=== PATIENT | male | born 1995 | race Caucasian/White ===

== ENCOUNTER → 2023-11-12 07:14 | Outpatient (REF) | payer BC, SELFPAY ==
[2023-11-12 08:02] LABS: % Basophils 1.4 % (0-2); % Immature Granulocytes 0.1 % (0-0.5); % Lymphocytes 19.3 % (20.5-51.1); % Monocytes 11.2 % (1.7-9.3); Absolute Basophils 0.1 10^3/uL (0-0.2); Absolute Eosinophils 0.3 10^3/uL (0-0.7); Absolute Lymphocytes 1.3 10^3/uL (1.2-3.4); Absolute Monocytes 0.8 10^3/uL (0.1-0.6); Absolute Neutrophils 4.5 10^3/uL (1.4-6.5); Hematocrit 44.8 % (39.0-52.0); Hemoglobin 15.1 g/dL (13.0-18.0); Mean Corp Hgb Conc. 33.7 g/dL (33.0-37.0); Mean Corpuscular Hgb 27.4 pg (27.0-31.0); Mean Corpuscular Volume 81.3 fL (80.0-94.0); Mean Platelet Volume 10.4 fL (7.4-10.4); Nucleated Red Blood Cells % 0 % (-); Platelet Count 369 10^3/uL (130-400); Red Blood Cell Count 5.51 10^6/uL (4.70-6.10); Red Cell Dist. Width 12.9 % (11.5-14.5)
[2023-11-12 08:37] LABS: Glycohemoglobin (HgbA1c) 10.5 % (4.0-5.6)
[2023-11-12 08:40] LABS: ALT (SGPT) 38 U/L (0-50); AST (SGOT) 30 U/L (17-59); Albumin 4.4 g/dl (3.5-5.0); Alkaline Phosphatase 112 U/L (38-126); Blood Urea Nitrogen 10 mg/dl (9-20); Carbon Dioxide 31 mmol/L (22-30); Chloride 98 mmol/L (98-107); Glucose 132 mg/dl (70-99); HDL Cholesterol 60 mg/dl; LDL Cholesterol, Calculated 110 mg/dl; Potassium 4.2 mmol/L (3.5-5.1); Sodium 139 mmol/L (135-145); Total Bilirubin 0.6 mg/dl (0.2-1.3); Total Cholesterol 188 mg/dl (50-199); Triglyceride 92 mg/dl (10-149); Very Low Density Lipoprotein 18 mg/dl (0-30); eGFR > 60.00
[2023-11-12 08:56] LABS: Vitamin D, 25-OH*** 55.8 ng/mL (30-80)
== END ==
LOC: REG 07:14
PROVIDERS: ATTENDING PHYSICIAN Internal Medicine
DX: E10.9 Type 1 diabetes mellitus without complications (principal); Z00.00 Encounter for general adult medical examination without abnormal findings; E55.9 Vitamin D deficiency, unspecified
CPT/HCPCS: 36415; 80053; 80061; 82306; 83036; 84443; 85025

== ENCOUNTER 2023-11-29 07:38 | Outpatient (RCR) | payer BC, SELFPAY ==
[2023-11-29] VITALS (11 sets, daily range): BP systolic 125–157; BP diastolic 87–98
[2023-11-29 08:33] LABS: % Basophils 1.1 % (0-2); % Eosinophils 3.2 % (0-6); % Immature Granulocytes 0.2 % (0-0.5); % Lymphocytes 18.2 % (20.5-51.1); % Monocytes 10.1 % (1.7-9.3); % Neutrophils 67.2 % (42.2-75.2); Absolute Basophils 0.1 10^3/uL (0-0.2); Absolute Eosinophils 0.2 10^3/uL (0-0.7); Absolute Lymphocytes 1.2 10^3/uL (1.2-3.4); Absolute Monocytes 0.7 10^3/uL (0.1-0.6); Absolute Neutrophils 4.5 10^3/uL (1.4-6.5); Hematocrit 39.5 % (39.0-52.0); Mean Corp Hgb Conc. 35.4 g/dL (33.0-37.0); Mean Corpuscular Hgb 27.8 pg (27.0-31.0); Mean Corpuscular Volume 78.4 fL (80.0-94.0); Mean Platelet Volume 10.1 fL (7.4-10.4); Nucleated Red Blood Cells % 0 % (-); Platelet Count 363 10^3/uL (130-400); Red Blood Cell Count 5.04 10^6/uL (4.70-6.10); Red Cell Dist. Width 13.2 % (11.5-14.5); White Blood Cell Count 6.6 10^3/uL (4.8-10.8)
[2023-11-29] MEDS: TYLENOL 650 MG PO (08:38)
[2023-11-29] MEDS: SOLU-MEDROL PF 51.6000000000000014 MG IV (08:38)
[2023-11-29] MEDS: NSS 500 IV (08:39)
[2023-11-29] MEDS: ATIVAN 1 ML IV (09:03)
[2023-11-29] MEDS: ATIVAN 1 MG IV (09:03)
[2023-11-29] MEDS: OCREVUS 520 MG IV (09:04)
== END 2023-12-02 08:19 | disposition home or self-care (01) ==
LOC: OID 07:38
PROVIDERS: ATTENDING PHYSICIAN Psychiatry & Neurology Neurology; FAMILY PHYSICIAN Internal Medicine
DX: G35 Multiple sclerosis (principal)
CPT/HCPCS: 36415; 85025; 96361; 96365; 96366; 96367; 96375; J2350

== ENCOUNTER → 2024-01-11 08:28 | Outpatient (REF) | payer BC, SELFPAY ==
[2024-01-11 10:15] LABS: Ferritin 48.5 ng/ml (17.9-464.0)
== END ==
LOC: REG 08:28
PROVIDERS: ATTENDING PHYSICIAN Psychiatry & Neurology Neurology; FAMILY PHYSICIAN Internal Medicine
DX: G35 Multiple sclerosis (principal); D50.8 Other iron deficiency anemias
CPT/HCPCS: 36415; 82728

== ENCOUNTER 2024-05-15 08:24 | Outpatient (RCR) | payer BC, SELFPAY ==
[2024-05-15] VITALS (9 sets, daily range): BP systolic 118–154; BP diastolic 76–88
[2024-05-15 08:59] LABS: % Basophils 1.3 % (0-2); % Eosinophils 3.4 % (0-6); % Immature Granulocytes 0.3 % (0-0.5); % Lymphocytes 15.2 % (20.5-51.1); % Monocytes 9.9 % (1.7-9.3); % Neutrophils 69.9 % (42.2-75.2); Absolute Basophils 0.1 10^3/uL (0-0.2); Absolute Eosinophils 0.2 10^3/uL (0-0.7); Absolute Lymphocytes 1.1 10^3/uL (1.2-3.4); Absolute Monocytes 0.7 10^3/uL (0.1-0.6); Hematocrit 40.5 % (39.0-52.0); Hemoglobin 14.3 g/dL (13.0-18.0); Mean Corp Hgb Conc. 35.3 g/dL (33.0-37.0); Mean Corpuscular Hgb 27.3 pg (27.0-31.0); Mean Corpuscular Volume 77.3 fL (80.0-94.0); Mean Platelet Volume 10.2 fL (7.4-10.4); Nucleated Red Blood Cells % 0 % (-); Platelet Count 356 10^3/uL (130-400); Red Blood Cell Count 5.24 10^6/uL (4.70-6.10); Red Cell Dist. Width 13.2 % (11.5-14.5); White Blood Cell Count 7.2 10^3/uL (4.8-10.8)
[2024-05-15] MEDS: TYLENOL 650 MG PO (10:12)
[2024-05-15] MEDS: NSS 500 IV (10:12)
[2024-05-15] MEDS: ATIVAN IV ×2 (10:13)
[2024-05-15] MEDS: SOLU-MEDROL PF 51.6 MG IV (10:14)
[2024-05-15] MEDS: ATIVAN 2 ML IV (10:18)
[2024-05-15] MEDS: ATIVAN 2 MG IV (10:18)
[2024-05-15] MEDS: OCREVUS 520 MG IV (10:46)
== END 2024-05-18 08:42 | disposition home or self-care (01) ==
LOC: OID 08:24
PROVIDERS: ATTENDING PHYSICIAN Psychiatry & Neurology Neurology; FAMILY PHYSICIAN Internal Medicine
DX: G35 Multiple sclerosis (principal)
CPT/HCPCS: 85025; 96365; 96366; 96367; 96375; J2350

== ENCOUNTER → 2024-08-11 07:21 | Outpatient (REF) | payer BC, SELFPAY ==
[2024-08-11 08:41] LABS: % Basophils 1.1 % (0-2); % Eosinophils 2.2 % (0-6); % Immature Granulocytes 0.3 % (0-0.5); % Lymphocytes 13.8 % (20.5-51.1); % Monocytes 8.6 % (1.7-9.3); Absolute Basophils 0.1 10^3/uL (0-0.2); Absolute Eosinophils 0.2 10^3/uL (0-0.7); Absolute Lymphocytes 1.1 10^3/uL (1.2-3.4); Absolute Monocytes 0.7 10^3/uL (0.1-0.6); Absolute Neutrophils 5.6 10^3/uL (1.4-6.5); Hematocrit 40.2 % (39.0-52.0); Hemoglobin 13.9 g/dL (13.0-18.0); Mean Corp Hgb Conc. 34.6 g/dL (33.0-37.0); Mean Corpuscular Hgb 27.2 pg (27.0-31.0); Mean Corpuscular Volume 78.7 fL (80.0-94.0); Mean Platelet Volume 10.2 fL (7.4-10.4); Nucleated Red Blood Cells % 0 % (-); Platelet Count 416 10^3/uL (130-400); Red Blood Cell Count 5.11 10^6/uL (4.70-6.10); Red Cell Dist. Width 13.1 % (11.5-14.5); White Blood Cell Count 7.6 10^3/uL (4.8-10.8)
[2024-08-11 09:11] LABS: ALT (SGPT) 53 U/L (0-50); AST (SGOT) 32 U/L (17-59); Albumin 4.8 g/dl (3.5-5.0); Alkaline Phosphatase 131 U/L (38-126); Blood Urea Nitrogen 10 mg/dl (9-20); Calcium 9.6 mg/dl (8.4-10.2); Carbon Dioxide 28 mmol/L (22-30); Chloride 97 mmol/L (98-107); Glucose 302 mg/dl (70-99); HDL Cholesterol 71 mg/dl; LDL Cholesterol, Calculated 149 mg/dl; Potassium 4.5 mmol/L (3.5-5.1); Sodium 139 mmol/L (135-145); Total Bilirubin 0.6 mg/dl (0.2-1.3); Total Cholesterol 234 mg/dl (50-199); Total Protein 7.2 g/dl (6.3-8.2); Triglyceride 72 mg/dl (10-149); Very Low Density Lipoprotein 14 mg/dl (0-30); eGFR > 60.00
[2024-08-11 09:32] LABS: TSH Reflex To Free T4 2.87 uIU/ml (0.47-4.68)
[2024-08-11 12:01] LABS: Glycohemoglobin (HgbA1c) 10.2 % (4.0-5.6)
== END ==
LOC: REG 07:21
PROVIDERS: ATTENDING PHYSICIAN Nurse Practitioner Family
DX: G35 Multiple sclerosis (principal)
CPT/HCPCS: 36415; 80053; 80061; 83036; 84443; 85025

== ENCOUNTER 2024-11-09 10:32 | Emergency (ER) | payer BC, SELFPAY ==
[2024-11-09 10:48] VITALS: BP 178/105
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
== END 2024-11-09 13:44 | disposition home or self-care (01) ==
LOC: EMR 10:32
PROVIDERS: EMERGENCY PHYSICIAN Student in an Organized Health Care Education/Training Program; FAMILY PHYSICIAN Internal Medicine
DX: S06.0X0A Concussion without loss of consciousness, initial encounter (principal); V43.53XA Car driver injured in collision with pick-up truck in traffic accident, initial encounter; E10.9 Type 1 diabetes mellitus without complications; G35 Multiple sclerosis; J45.909 Unspecified asthma, uncomplicated
CPT/HCPCS: 99284; 70450

== ENCOUNTER 2024-11-17 07:46 | Outpatient (RCR) | payer BC, SELFPAY ==
[2024-11-17] VITALS (11 sets, daily range): BP systolic 146–162; BP diastolic 82–102
[2024-11-17 08:16] LABS: % Eosinophils 3.8 % (0-6); % Immature Granulocytes 0.1 % (0-0.5); % Lymphocytes 13.4 % (20.5-51.1); % Monocytes 9.6 % (1.7-9.3); % Neutrophils 72.1 % (42.2-75.2); Absolute Basophils 0.1 10^3/uL (0-0.2); Absolute Eosinophils 0.3 10^3/uL (0-0.7); Absolute Monocytes 0.7 10^3/uL (0.1-0.6); Absolute Neutrophils 5.5 10^3/uL (1.4-6.5); Hematocrit 39.2 % (39.0-52.0); Hemoglobin 13.5 g/dL (13.0-18.0); Mean Corp Hgb Conc. 34.4 g/dL (33.0-37.0); Mean Corpuscular Hgb 27.7 pg (27.0-31.0); Mean Corpuscular Volume 80.3 fL (80.0-94.0); Mean Platelet Volume 10.1 fL (7.4-10.4); Platelet Count 342 10^3/uL (130-400); Red Blood Cell Count 4.88 10^6/uL (4.70-6.10); Red Cell Dist. Width 12.7 % (11.5-14.5); White Blood Cell Count 7.6 10^3/uL (4.8-10.8)
[2024-11-17] MEDS: NSS 500 IV (08:24)
[2024-11-17] MEDS: TYLENOL 650 MG PO (08:25)
[2024-11-17] MEDS: ATIVAN 2 MG IV (08:26)
[2024-11-17] MEDS: ATIVAN 2 ML IV (08:26)
[2024-11-17] MEDS: SOLU-MEDROL PF 51.6 MG IV (08:26)
[2024-11-17] MEDS: OCREVUS 520 MG IV (08:57)
== END 2024-11-17 12:53 | disposition home or self-care (01) ==
LOC: OID 07:46
PROVIDERS: ATTENDING PHYSICIAN Psychiatry & Neurology Neurology; FAMILY PHYSICIAN Internal Medicine
DX: G35 Multiple sclerosis (principal)
CPT/HCPCS: 36415; 85025; 96361; 96367; 96375; 96413; 96415; J2350

== ENCOUNTER → 2024-12-04 06:38 | Outpatient (REF) | payer BC, SELFPAY ==
[2024-12-04 07:16] LABS: % Basophils 0.9 % (0-2); % Eosinophils 2.9 % (0-6); % Immature Granulocytes 0.4 % (0-0.5); % Lymphocytes 13.6 % (20.5-51.1); % Monocytes 11.8 % (1.7-9.3); % Neutrophils 70.4 % (42.2-75.2); Absolute Basophils 0.1 10^3/uL (0-0.2); Absolute Eosinophils 0.2 10^3/uL (0-0.7); Absolute Monocytes 0.9 10^3/uL (0.1-0.6); Absolute Neutrophils 5.3 10^3/uL (1.4-6.5); Hematocrit 43.9 % (39.0-52.0); Hemoglobin 14.6 g/dL (13.0-18.0); Mean Corp Hgb Conc. 33.3 g/dL (33.0-37.0); Mean Corpuscular Volume 81.1 fL (80.0-94.0); Mean Platelet Volume 10.4 fL (7.4-10.4); Nucleated Red Blood Cells % 0 % (-); Platelet Count 343 10^3/uL (130-400); Red Blood Cell Count 5.41 10^6/uL (4.70-6.10); Red Cell Dist. Width 13.1 % (11.5-14.5); White Blood Cell Count 7.6 10^3/uL (4.8-10.8)
[2024-12-04 07:53] LABS: ALT (SGPT) 37 U/L (0-50); AST (SGOT) 28 U/L (17-59); Albumin 4.2 g/dl (3.5-5.0); Alkaline Phosphatase 125 U/L (38-126); Blood Urea Nitrogen 14 mg/dl (9-20); Calcium 10.1 mg/dl (8.4-10.2); Carbon Dioxide 30 mmol/L (22-30); Chloride 99 mmol/L (98-107); Glucose 255 mg/dl (70-99); HDL Cholesterol 56 mg/dl; LDL Cholesterol, Calculated 126 mg/dl; Potassium 4.5 mmol/L (3.5-5.1); Sodium 136 mmol/L (135-145); Total Bilirubin 0.7 mg/dl (0.2-1.3); Total Cholesterol 199 mg/dl (50-199); Total Protein 6.6 g/dl (6.3-8.2); Triglyceride 87 mg/dl (10-149); Very Low Density Lipoprotein 17 mg/dl (0-30); eGFR > 60.00
[2024-12-04 09:11] LABS: Microalbumin, Random Urine 24.6 mg/dl (0.6-1.7)
== END ==
LOC: REG 06:38
PROVIDERS: ATTENDING PHYSICIAN Nurse Practitioner Family; REFERRING PHYSICIAN Internal Medicine Cardiovascular Disease
DX: E10.9 Type 1 diabetes mellitus without complications (principal); R53.83 Other fatigue; Z00.00 Encounter for general adult medical examination without abnormal findings
CPT/HCPCS: 36415; 80053; 80061; 82043; 82570; 85025

== ENCOUNTER 2025-05-18 07:47 | Outpatient (RCR) | payer BC, SELFPAY ==
[2025-05-18] VITALS (8 sets, daily range): BP systolic 137–154; BP diastolic 91–98
[2025-05-18 08:08] LABS: Hematocrit 40.2 % (39.0-52.0); Hemoglobin 13.8 g/dL (13.0-18.0); Mean Corp Hgb Conc. 34.3 g/dL (33.0-37.0); Mean Corpuscular Volume 79.9 fL (80.0-94.0); Platelet Count 366 10^3/uL (130-400); Red Cell Dist. Width 12.8 % (11.5-14.5)
[2025-05-18] MEDS: TYLENOL 650 MG PO (08:21)
[2025-05-18] MEDS: NSS 500 IV (08:21)
[2025-05-18] MEDS: SOLU-MEDROL PF 51.6 MG IV (08:32)
[2025-05-18] MEDS: ATIVAN 2 MG PO (08:34)
[2025-05-18] MEDS: OCREVUS 520 MG IV (09:07)
== END 2025-05-19 08:33 | disposition home or self-care (01) ==
LOC: OID 07:47
PROVIDERS: ATTENDING PHYSICIAN Psychiatry & Neurology Neurology; FAMILY PHYSICIAN Internal Medicine
DX: G35 Multiple sclerosis (principal)
CPT/HCPCS: 85025; 96360; 96365; 96366; 96367; J2350

== ENCOUNTER 2025-05-24 17:35 | Outpatient (RCR) | payer BC, SELFPAY | END 2025-05-24 23:59 | disposition home or self-care (01) | LOC: RPT 17:35 | PROVIDERS: ATTENDING PHYSICIAN Student in an Organized Health Care Education/Training Program; FAMILY PHYSICIAN Nurse Practitioner Family | DX: R25.2 Cramp and spasm (principal); Z73.6 Limitation of activities due to disability; R26.2 Difficulty in walking, not elsewhere classified; M62.81 Muscle weakness (generalized); G35 Multiple sclerosis | CPT/HCPCS: 97110; 97112; 97162 ==

== ENCOUNTER 2025-06-30 17:15 | Outpatient (RCR) | payer BC, SELFPAY | END 2025-06-30 23:59 | disposition home or self-care (01) | LOC: RPT 17:15 | PROVIDERS: ATTENDING PHYSICIAN Student in an Organized Health Care Education/Training Program; FAMILY PHYSICIAN Nurse Practitioner Family | DX: R25.2 Cramp and spasm (principal); Z73.6 Limitation of activities due to disability; R26.2 Difficulty in walking, not elsewhere classified; M62.81 Muscle weakness (generalized); G35 Multiple sclerosis | CPT/HCPCS: 97110 ==

== ENCOUNTER → 2025-07-09 18:59 | Outpatient (REF) | payer BC, SELFPAY | LOC: MRI 3T 18:59 | PROVIDERS: ATTENDING PHYSICIAN Psychiatry & Neurology Neurology; FAMILY PHYSICIAN Nurse Practitioner Family | DX: G35.D Multiple sclerosis, unspecified (principal) | CPT/HCPCS: 70553; 72141; A9575 ==

== ENCOUNTER → 2025-07-12 18:55 | Outpatient (REF) | payer BC, SELFPAY | LOC: MRI 3T 18:55 | PROVIDERS: ATTENDING PHYSICIAN Psychiatry & Neurology Neurology; FAMILY PHYSICIAN Nurse Practitioner Family | DX: G35.D Multiple sclerosis, unspecified (principal) | CPT/HCPCS: 72157; A9575 ==

== ENCOUNTER 2025-08-23 07:09 | Outpatient (RCR) | payer BC, SELFPAY | END 2025-08-23 23:59 | disposition home or self-care (01) | LOC: RPT 07:09 | PROVIDERS: ATTENDING PHYSICIAN Student in an Organized Health Care Education/Training Program; FAMILY PHYSICIAN Nurse Practitioner Family | DX: R25.2 Cramp and spasm (principal); Z73.6 Limitation of activities due to disability; R26.2 Difficulty in walking, not elsewhere classified; M62.81 Muscle weakness (generalized); R53.83 Other fatigue; G35 Multiple sclerosis; G35.D Multiple sclerosis, unspecified | CPT/HCPCS: 97110 ==

== ENCOUNTER 2025-09-09 06:42 | Outpatient (RCR) | payer BC, SELFPAY | END 2025-09-09 23:59 | disposition home or self-care (01) | LOC: RPT 06:42 | PROVIDERS: ATTENDING PHYSICIAN Student in an Organized Health Care Education/Training Program; FAMILY PHYSICIAN Nurse Practitioner Family | DX: R25.2 Cramp and spasm (principal); Z73.6 Limitation of activities due to disability; R26.2 Difficulty in walking, not elsewhere classified; M62.81 Muscle weakness (generalized); R53.83 Other fatigue; G35.D Multiple sclerosis, unspecified; G35 Multiple sclerosis; M25.511 Pain in right shoulder | CPT/HCPCS: 97110; 97112 ==